=== PATIENT | female | born 1970 | race Caucasian/White ===

== ENCOUNTER 2019-10-24 13:18 | Inpatient (IN) | payer BC, OTHER ==
[~2019-10-24] VITALS: Ht 160 cm; Wt 71.7 kg
[2019-10-24] MEDS ORDERED: SODIUM CHLORIDE 0.9% 1,000 ML IV ONE (13:53)
[2019-10-24] MEDS ORDERED: ONDANSETRON HCL 4MG/2ML INJ IV STA ×4 (13:53→18:38)
[2019-10-24] MEDS ORDERED: FAMOTIDINE 20MG/2ML VIAL IV STA (13:53)
[2019-10-24] MEDS ORDERED: KETOROLAC 30MG/ML VIAL IV STA (14:15)
[2019-10-24 14:45] LABS: CHLORIDE 107 mEq/L (98-107)
[2019-10-24 14:46] LABS: PROTHROMBIN TIME 10.7 sec (9.6-11.0)
[2019-10-24 14:47] LABS: HEMATOCRIT. 38.3 % (36.0-48.0); HEMOGLOBIN. 12.5 g/dL (12.0-16.0); MEAN CORPUSCULAR HEMOGLOBIN 27.8 pg (28.0-32.0); MEAN CORPUSCULAR VOLUME 85.4 fL (81.0-99.0); MEAN PLATELET VOLUME 8.4 fl (7.4-10.4); PLATELET 442 x1000/uL (130-400); RED BLOOD CELL COUNT 4.49 mill/uL (4.2-5.4); RED CELL DISTRIBUTION WIDTH 14.7 % (11.6-14.6)
[2019-10-24 14:49] LABS: ETHANOL BLOOD < 10 mg/dL
[2019-10-24 14:56] LABS: HCG SCREEN NEGATIVE
[2019-10-24] MEDS ORDERED: LORAZEPAM 2MG/ML CPJ IV ONE (15:30)
[2019-10-24 15:41] LABS: CLARITY URINE CLOUDY (CLEAR); COLOR URINE YELLOW (YELLOW); KETONES URINE NEGATIVE (NEGATIVE); LEUKOCYTE ESTERASE URINE NEGATIVE (NEGATIVE); NITRITE URINE NEGATIVE (NEGATIVE); OCCULT BLOOD URINE NEGATIVE (NEGATIVE); PROTEIN URINE NEGATIVE (NEGATIVE); SPECIFIC GRAVITY URINE 1.017 (1.005-1.030); UROBILINOGEN URINE 0.2 E.U./dL (0.2-1.0)
[2019-10-24 15:49] LABS: PLATELET ESTIMATE NORMAL
[2019-10-24 15:54] LABS: *BARBITURATES SCREEN URINE NEGATIVE (NEGATIVE); *BENZODIAZEPINES SCREEN URINE NEGATIVE (NEGATIVE)
[2019-10-24 15:55] LABS: *AMPHETAMINES SCREEN URINE NEGATIVE (NEGATIVE); *COCAINE SCREEN URINE NEGATIVE (NEGATIVE); CANNABINOID URINE SCREEN NEGATIVE (NEGATIVE); METHADONE URINE SCREEN NEGATIVE (NEGATIVE); OPIATES URINE SCREEN NEGATIVE (NEGATIVE); PHENCYCLIDINE URINE SCREEN NEGATIVE (NEGATIVE)
[2019-10-24] MEDS ORDERED: MORPHINE SULFATE 4 MG/ML CPJ (NOT FOR IM USE) IV STA ×3 (15:59→18:38)
[2019-10-24] MEDS ORDERED: KCL 20MEQ/100ML PREMIX 100 ML IV ONE (16:30)
[2019-10-24] MEDS ORDERED: FENTANYL CITRATE/PF 50MCG/ML 2ML VIAL IV ONE ×2 (20:15→21:30)
[2019-10-24] MEDS: ONDANSETRON HCL 4MG/2ML INJ IV PRN (22:36)
[2019-10-25] MEDS: MORPHINE SULFATE 4 MG/ML CPJ (NOT FOR IM USE) IV PRN ×4 (00:30→17:49)
[2019-10-25] MEDS ORDERED: LEVOFLOXACIN 500MG PREMIX 100 ML IV SCH (01:00)
[2019-10-25] MEDS: ONDANSETRON HCL 4MG/2ML INJ IV PRN (04:31)
[2019-10-25] MEDS: DEXT 5%/0.45% NACL 1000ML 1,000 ML IV SCH ×2 (06:00→19:20)
[2019-10-25] MEDS ORDERED: SODIUM CHLORIDE 0.9% 1,000 ML IV SCH (06:00)
[2019-10-25 06:53] LABS: CHLORIDE 104 mEq/L (98-107)
[2019-10-25 07:00] LABS: LDL CHOLESTEROL 156 mg/dL (5-100)
[2019-10-25 07:01] LABS: HDL CHOLESTEROL 60 mg/dL (40-59)
[2019-10-25 08:00] VITALS: BP 134/72
[2019-10-25 09:39] VITALS: BP 136/84
[2019-10-25 10:56] LABS: HEMATOCRIT. 42.1 % (36.0-48.0); HEMOGLOBIN. 14.1 g/dL (12.0-16.0); MEAN CORPUSCULAR HEMOGLOBIN 28.6 pg (28.0-32.0); MEAN CORPUSCULAR VOLUME 85.4 fL (81.0-99.0); MEAN PLATELET VOLUME 8.8 fl (7.4-10.4); PLATELET 386 x1000/uL (130-400); RED BLOOD CELL COUNT 4.93 mill/uL (4.2-5.4); RED CELL DISTRIBUTION WIDTH 14.6 % (11.6-14.6)
[2019-10-25] MEDS: METRONIDAZOLE 500 MG PREMIX 100 ML IV SCH ×2 (11:46→21:51)
[2019-10-25 12:00] VITALS: BP 137/95
[2019-10-25] MEDS: METOPROLOL TARTRATE 25MG TABLET PO SCH ×2 (13:17→17:49)
[2019-10-25 14:30] VITALS: BP 136/84
[2019-10-25 15:26] LABS: PLATELET ESTIMATE NORMAL
[2019-10-25 16:00] VITALS: BP 129/90
[2019-10-25 20:00] VITALS: BP 118/81
[2019-10-25] MEDS: ATORVASTATIN CALCIUM 40MG TABLET PO SCH (21:51)
[2019-10-26] VITALS: BP 120/80
[2019-10-26] MEDS: ZOLPIDEM TARTRATE 5MG TABLET PO PRN (00:15)
[2019-10-26] MEDS ORDERED: LEVOFLOXACIN 500MG PREMIX 100 ML IV SCH (01:00)
[2019-10-26] MEDS: DEXT 5%/0.45% NACL 1000ML 1,000 ML IV SCH ×4 (01:40→22:06)
[2019-10-26 04:00] VITALS: BP 128/85
[2019-10-26] MEDS: METRONIDAZOLE 500 MG PREMIX 100 ML IV SCH ×2 (04:07→12:10)
[2019-10-26 07:58] LABS: MEAN CORPUSCULAR HEMOGLOBIN 27.6 pg (28.0-32.0); MEAN CORPUSCULAR VOLUME 85.1 fL (81.0-99.0); MEAN PLATELET VOLUME 8.7 fl (7.4-10.4); PLATELET 317 x1000/uL (130-400); RED BLOOD CELL COUNT 4.69 mill/uL (4.2-5.4); RED CELL DISTRIBUTION WIDTH 14.8 % (11.6-14.6)
[2019-10-26] MEDS: MORPHINE SULFATE 4 MG/ML CPJ (NOT FOR IM USE) IV PRN ×3 (07:59→18:33)
[2019-10-26 08:00] VITALS: BP 123/86
[2019-10-26 08:04] LABS: CHLORIDE 105 mEq/L (98-107)
[2019-10-26 08:18] LABS: AMYLASE 925 IU/L (25-115)
[2019-10-26] MEDS: FAMOTIDINE 20MG/2ML VIAL IV SCH (08:59)
[2019-10-26] MEDS: METOPROLOL TARTRATE 25MG TABLET PO SCH ×2 (09:01→17:54)
[2019-10-26 12:00] VITALS: BP 128/80
[2019-10-26 12:57] LABS: PLATELET ESTIMATE NORMAL
[2019-10-26] MEDS: PIPERACILLIN/TAZOBACTAM 3.375 G in DEXT 5% WATER 100 ML IV SCH ×2 (15:21→22:06)
[2019-10-26 16:00] VITALS: BP 146/96
[2019-10-26 20:00] VITALS: BP 121/83
[2019-10-26] MEDS: ATORVASTATIN CALCIUM 40MG TABLET PO SCH (22:06)
[2019-10-26] MEDS: ACETAMINOPHEN 325MG TABLET PO PRN (23:40)
[2019-10-27] VITALS: BP 144/87
[2019-10-27] MEDS: MORPHINE SULFATE 4 MG/ML CPJ (NOT FOR IM USE) IV PRN ×5 (00:46→21:50)
[2019-10-27] MEDS: PIPERACILLIN/TAZOBACTAM 3.375 G in DEXT 5% WATER 100 ML IV SCH ×4 (02:57→20:36)
[2019-10-27 04:00] VITALS: BP 120/82
[2019-10-27] MEDS: DEXT 5%/0.45% NACL 1000ML 1,000 ML IV SCH ×3 (04:38→16:30)
[2019-10-27 07:29] LABS: CHLORIDE 104 mEq/L (98-107)
[2019-10-27 07:32] LABS: HEMATOCRIT. 32.9 % (36.0-48.0); HEMOGLOBIN. 10.9 g/dL (12.0-16.0); MEAN CORPUSCULAR HEMOGLOBIN 28.2 pg (28.0-32.0); MEAN CORPUSCULAR VOLUME 84.9 fL (81.0-99.0); MEAN PLATELET VOLUME 8.6 fl (7.4-10.4); PLATELET 248 x1000/uL (130-400); RED BLOOD CELL COUNT 3.87 mill/uL (4.2-5.4)
[2019-10-27 07:42] LABS: AMYLASE 723 IU/L (25-115)
[2019-10-27 07:57] VITALS: BP 133/77
[2019-10-27] MEDS: METOPROLOL TARTRATE 25MG TABLET PO SCH ×2 (08:36→16:33)
[2019-10-27] MEDS: FAMOTIDINE 20MG/2ML VIAL IV SCH (08:36)
[2019-10-27] MEDS: DOCUSATE SODIUM 250MG CAPSULE PO SCH ×2 (08:37→16:28)
[2019-10-27 11:51] VITALS: BP 130/69
[2019-10-27 15:31] VITALS: BP 122/68
[2019-10-27 16:49] LABS: PLATELET ESTIMATE NORMAL
[2019-10-27 20:00] VITALS: BP 132/83
[2019-10-27] MEDS: ATORVASTATIN CALCIUM 40MG TABLET PO SCH (20:36)
[2019-10-28] VITALS: BP 125/81
[2019-10-28] MEDS: ONDANSETRON HCL 4MG/2ML INJ IV PRN (00:04)
[2019-10-28] MEDS: DEXT 5%/0.45% NACL 1000ML 1,000 ML IV SCH ×4 (00:04→21:27)
[2019-10-28] MEDS: PIPERACILLIN/TAZOBACTAM 3.375 G in DEXT 5% WATER 100 ML IV SCH ×4 (02:08→21:21)
[2019-10-28] MEDS: MORPHINE SULFATE 4 MG/ML CPJ (NOT FOR IM USE) IV PRN ×5 (02:09→21:23)
[2019-10-28 04:00] VITALS: BP 129/76
[2019-10-28] MEDS: ZOLPIDEM TARTRATE 5MG TABLET PO PRN ×2 (04:10→21:31)
[2019-10-28 06:47] LABS: HEMOGLOBIN. 9.2 g/dL (12.0-16.0); MEAN CORPUSCULAR HEMOGLOBIN 28.3 pg (28.0-32.0); MEAN CORPUSCULAR VOLUME 86.5 fL (81.0-99.0); MEAN PLATELET VOLUME 8.5 fl (7.4-10.4); PLATELET 256 x1000/uL (130-400); RED BLOOD CELL COUNT 3.24 mill/uL (4.2-5.4); RED CELL DISTRIBUTION WIDTH 15.2 % (11.6-14.6)
[2019-10-28 07:21] LABS: CHLORIDE 104 mEq/L (98-107)
[2019-10-28 07:41] VITALS: BP 128/80
[2019-10-28] MEDS: FAMOTIDINE 20MG/2ML VIAL IV SCH (08:27)
[2019-10-28] MEDS: DOCUSATE SODIUM 250MG CAPSULE PO SCH ×2 (08:28→16:40)
[2019-10-28] MEDS: METOPROLOL TARTRATE 25MG TABLET PO SCH ×2 (08:28→17:04)
[2019-10-28 11:37] VITALS: BP 126/80
[2019-10-28] MEDS ORDERED: DEXTROSE 50% WATER 50ML SYRINGE IV PRN (12:15)
[2019-10-28] MEDS: BLOOD SUGAR DIAGNOSTIC STRIP TEST SCH ×3 (13:10→21:28)
[2019-10-28] MEDS: INSULIN LISPRO 100 UNITS/ML SUBCUT SCH ×3 (13:14→21:31)
[2019-10-28 16:00] VITALS: BP 148/84
[2019-10-28 17:32] LABS: PLATELET ESTIMATE NORMAL
[2019-10-28] MEDS: ACETAMINOPHEN 325MG TABLET PO PRN (19:37)
[2019-10-28] MEDS: ATORVASTATIN CALCIUM 40MG TABLET PO SCH (19:37)
[2019-10-28 20:00] VITALS: BP 133/82
[2019-10-29] VITALS: BP 126/74
[2019-10-29] MEDS: MORPHINE SULFATE 4 MG/ML CPJ (NOT FOR IM USE) IV PRN ×3 (00:59→09:14)
[2019-10-29] MEDS: PIPERACILLIN/TAZOBACTAM 3.375 G in DEXT 5% WATER 100 ML IV SCH ×2 (03:11→09:15)
[2019-10-29] MEDS: DEXT 5%/0.45% NACL 1000ML 1,000 ML IV SCH ×4 (03:12→23:20)
[2019-10-29 04:00] VITALS: BP 140/78
[2019-10-29] MEDS: BLOOD SUGAR DIAGNOSTIC STRIP TEST SCH ×4 (06:16→21:22)
[2019-10-29 07:30] LABS: HEMATOCRIT. 27.3 % (36.0-48.0); HEMOGLOBIN. 9.1 g/dL (12.0-16.0); MEAN CORPUSCULAR HEMOGLOBIN 28.3 pg (28.0-32.0); MEAN CORPUSCULAR VOLUME 84.6 fL (81.0-99.0); MEAN PLATELET VOLUME 8.4 fl (7.4-10.4); PLATELET 266 x1000/uL (130-400); RED BLOOD CELL COUNT 3.23 mill/uL (4.2-5.4); RED CELL DISTRIBUTION WIDTH 15.1 % (11.6-14.6)
[2019-10-29 08:00] VITALS: BP 129/75
[2019-10-29 08:53] LABS: CHLORIDE 101 mEq/L (98-107)
[2019-10-29] MEDS: METOPROLOL TARTRATE 25MG TABLET PO SCH ×2 (09:14→18:14)
[2019-10-29] MEDS: DOCUSATE SODIUM 250MG CAPSULE PO SCH ×2 (09:14→18:14)
[2019-10-29] MEDS: FAMOTIDINE 20MG/2ML VIAL IV SCH (09:14)
[2019-10-29] MEDS: INSULIN LISPRO 100 UNITS/ML SUBCUT SCH ×4 (09:17→21:29)
[2019-10-29] MEDS: ACETAMINOPHEN 325MG TABLET PO PRN ×2 (11:34→21:28)
[2019-10-29 12:00] VITALS: BP 111/72
[2019-10-29] MEDS ORDERED: POTASSIUM CHLORIDE 20MEQ TABLET SR PO NR (12:15)
[2019-10-29] MEDS: HYDROCODONE/ACETAMINOPHEN 5/325MG TABLET PO PRN ×3 (13:00→22:22)
[2019-10-29 14:16] LABS: PLATELET ESTIMATE NORMAL
[2019-10-29 16:00] VITALS: BP 121/75
[2019-10-29 20:00] VITALS: BP 119/74
[2019-10-29] MEDS: ATORVASTATIN CALCIUM 40MG TABLET PO SCH (21:28)
[2019-10-29] MEDS: ZOLPIDEM TARTRATE 5MG TABLET PO PRN (23:57)
[2019-10-30] VITALS: BP 105/62
[2019-10-30 04:00] VITALS: BP 125/69
[2019-10-30] MEDS: DEXT 5%/0.45% NACL 1000ML 1,000 ML IV SCH ×3 (05:26→20:52)
[2019-10-30] MEDS: HYDROCODONE/ACETAMINOPHEN 5/325MG TABLET PO PRN ×3 (06:56→10:53)
[2019-10-30 08:26] VITALS: BP_SYST 110; BP_SYST 113; BP_DIAS 68; BP_DIAS 70
[2019-10-30] MEDS: DOCUSATE SODIUM 250MG CAPSULE PO SCH ×2 (08:29→18:36)
[2019-10-30] MEDS: METOPROLOL TARTRATE 25MG TABLET PO SCH ×3 (08:30→18:36)
[2019-10-30] MEDS: BLOOD SUGAR DIAGNOSTIC STRIP TEST SCH ×4 (08:31→20:52)
[2019-10-30] MEDS: INSULIN LISPRO 100 UNITS/ML SUBCUT SCH ×4 (08:31→20:52)
[2019-10-30] MEDS: FAMOTIDINE 20MG/2ML VIAL IV SCH (08:34)
[2019-10-30 08:45] LABS: MEAN CORPUSCULAR HEMOGLOBIN 28.2 pg (28.0-32.0); MEAN CORPUSCULAR VOLUME 84.3 fL (81.0-99.0); PLATELET 340 x1000/uL (130-400); RED CELL DISTRIBUTION WIDTH 15.2 % (11.6-14.6)
[2019-10-30 09:09] LABS: CHLORIDE 103 mEq/L (98-107)
[2019-10-30] MEDS ORDERED: MORPHINE SULFATE 2 MG/ML CPJ (NOT FOR IM USE) IV PRN (11:15)
[2019-10-30 12:00] VITALS: BP 113/72
[2019-10-30] MEDS ORDERED: POTASSIUM CHLORIDE 20MEQ TABLET SR PO SCH (14:00)
[2019-10-30 16:00] VITALS: BP 119/74
[2019-10-30 20:00] VITALS: BP 115/74
[2019-10-30] MEDS: HYDROCODONE/ACETAMINOPHEN 10/325MG TABLET PO PRN (20:04)
[2019-10-30] MEDS: ATORVASTATIN CALCIUM 40MG TABLET PO SCH (20:52)
[2019-10-31] VITALS (7 sets, daily range): BP systolic 100–126; BP diastolic 61–71
[2019-10-31] MEDS: HYDROCODONE/ACETAMINOPHEN 10/325MG TABLET PO PRN (00:14)
[2019-10-31] MEDS: DEXT 5%/0.45% NACL 1000ML 1,000 ML IV SCH ×4 (02:00→22:08)
[2019-10-31 06:55] LABS: HEMATOCRIT 25.3 % (36.0-48.0); HEMOGLOBIN 8.6 g/dL (12.0-16.0); MEAN CORPUSCULAR HEMOGLOBIN 28.7 pg (28.0-32.0); MEAN CORPUSCULAR VOLUME 84.4 fL (81.0-99.0); PLATELET 342 x1000/uL (130-400); RED CELL DISTRIBUTION WIDTH 15.1 % (11.6-14.6)
[2019-10-31 07:24] LABS: CHLORIDE 104 mEq/L (98-107)
[2019-10-31 07:36] LABS: AMYLASE 65 IU/L (25-115)
[2019-10-31] MEDS: BLOOD SUGAR DIAGNOSTIC STRIP TEST SCH ×4 (07:41→21:00)
[2019-10-31] MEDS: METOPROLOL TARTRATE 25MG TABLET PO SCH ×2 (08:47→16:27)
[2019-10-31] MEDS: FAMOTIDINE 20MG/2ML VIAL IV SCH (08:59)
[2019-10-31] MEDS: DOCUSATE SODIUM 250MG CAPSULE PO SCH ×2 (08:59→16:17)
[2019-10-31] MEDS: INSULIN LISPRO 100 UNITS/ML SUBCUT SCH ×4 (09:00→21:57)
[2019-10-31] MEDS: ACETAMINOPHEN 325MG TABLET PO PRN ×2 (11:14→22:07)
[2019-10-31] MEDS ORDERED: POTASSIUM CHLORIDE 20MEQ TABLET SR PO NR (11:45)
[2019-10-31] MEDS ORDERED: PIPERACILLIN/TAZOBACTAM 3.375 G in DEXT 5% WATER 100 ML IV SCH (18:00)
[2019-10-31] MEDS: ATORVASTATIN CALCIUM 40MG TABLET PO SCH (21:58)
[2019-10-31] MEDS ORDERED: MEROPENEM 1,000 MG in SODIUM CHLORIDE 0.9% 100 ML IV SCH (23:30)
[2019-11-01] VITALS (11 sets, daily range): BP systolic 109–128; BP diastolic 57–84
[2019-11-01] MEDS: MEROPENEM 1,000 MG in SODIUM CHLORIDE 0.9% 100 ML IV SCH ×3 (01:34→17:15)
[2019-11-01] MEDS: DEXT 5%/0.45% NACL 1000ML 1,000 ML IV SCH ×3 (04:40→17:26)
[2019-11-01 07:51] LABS: HEMATOCRIT 25.8 % (36.0-48.0); HEMOGLOBIN 8.5 g/dL (12.0-16.0); MEAN CORPUSCULAR HEMOGLOBIN 28.1 pg (28.0-32.0); MEAN CORPUSCULAR VOLUME 85.1 fL (81.0-99.0); PLATELET 474 x1000/uL (130-400); RED BLOOD CELL COUNT 3.03 mill/uL (4.2-5.4); RED CELL DISTRIBUTION WIDTH 15.2 % (11.6-14.6)
[2019-11-01] MEDS: BLOOD SUGAR DIAGNOSTIC STRIP TEST SCH ×4 (07:52→21:03)
[2019-11-01 08:00] LABS: CHLORIDE 102 mEq/L (98-107)
[2019-11-01 08:04] LABS: AMYLASE 52 IU/L (25-115)
[2019-11-01] MEDS: DOCUSATE SODIUM 250MG CAPSULE PO SCH ×2 (09:00→17:00)
[2019-11-01] MEDS: HYDROCODONE/ACETAMINOPHEN 10/325MG TABLET PO PRN (10:09)
[2019-11-01] MEDS: FAMOTIDINE 20MG/2ML VIAL IV SCH (10:09)
[2019-11-01] MEDS: METOPROLOL TARTRATE 50MG TABLET PO SCH ×2 (10:10→21:02)
[2019-11-01] MEDS: METOPROLOL TARTRATE 25MG TABLET PO SCH ×2 (10:11→17:15)
[2019-11-01] MEDS: INSULIN LISPRO 100 UNITS/ML SUBCUT SCH ×4 (10:12→21:03)
[2019-11-01] MEDS ORDERED: DIATR MEGLU/DIATRIZOATE SOLN 30ML PO SCH (12:00)
[2019-11-01] MEDS: ACETAMINOPHEN 325MG TABLET PO PRN (15:58)
[2019-11-01] MEDS: ATORVASTATIN CALCIUM 40MG TABLET PO SCH (21:02)
[2019-11-02] VITALS (13 sets, daily range): BP systolic 85–124; BP diastolic 30–69
[2019-11-02] MEDS: DEXT 5%/0.45% NACL 1000ML 1,000 ML IV SCH ×4 (01:38→20:16)
[2019-11-02] MEDS: MEROPENEM 1,000 MG in SODIUM CHLORIDE 0.9% 100 ML IV SCH ×3 (01:38→17:38)
[2019-11-02] MEDS: ACETAMINOPHEN 325MG TABLET PO PRN ×2 (03:00→12:42)
[2019-11-02 06:29] LABS: HEMATOCRIT. 24.4 % (36.0-48.0); MEAN CORPUSCULAR HEMOGLOBIN 27.8 pg (28.0-32.0); MEAN CORPUSCULAR VOLUME 84.2 fL (81.0-99.0); MEAN PLATELET VOLUME 7.7 fl (7.4-10.4); PLATELET 485 x1000/uL (130-400); RED CELL DISTRIBUTION WIDTH 15.2 % (11.6-14.6)
[2019-11-02 06:42] LABS: CHLORIDE 104 mEq/L (98-107)
[2019-11-02 06:52] LABS: AMYLASE 46 IU/L (25-115)
[2019-11-02] MEDS ORDERED: POTASSIUM CHLORIDE INJ 40 MEQ in DEXT 5% WATER 250 ML IV ONE ×2 (07:15→12:00)
[2019-11-02] MEDS: BLOOD SUGAR DIAGNOSTIC STRIP TEST SCH ×4 (07:58→20:17)
[2019-11-02] MEDS: FAMOTIDINE 20MG/2ML VIAL IV SCH (08:22)
[2019-11-02] MEDS: INSULIN LISPRO 100 UNITS/ML SUBCUT SCH ×4 (08:23→20:17)
[2019-11-02] MEDS: DOCUSATE SODIUM 250MG CAPSULE PO SCH ×2 (08:23→17:00)
[2019-11-02] MEDS: METOPROLOL TARTRATE 50MG TABLET PO SCH ×2 (08:24→20:17)
[2019-11-02 12:30] LABS: HEMATOCRIT. 27.3 % (36.0-48.0); HEMOGLOBIN. 9.1 g/dL (12.0-16.0); MEAN CORPUSCULAR VOLUME 84.2 fL (81.0-99.0); PLATELET 587 x1000/uL (130-400); RED BLOOD CELL COUNT 3.24 mill/uL (4.2-5.4); RED CELL DISTRIBUTION WIDTH 15.1 % (11.6-14.6)
[2019-11-02 14:20] LABS: PLATELET ESTIMATE SLIGHTLY INCREASED
[2019-11-02 15:01] LABS: BG BASE EXCESS -3.6 mmol/L (-2.0-2.0); BG CARBOXYHEMOGLOBIN 0.3 % (0.5-1.5); BG DEOXYHEMOGLOBIN 2.6 % (0.0-5.0); BG FRACTION INSPIRED OXYGEN 28; BG HCO3 ACT 17.5 mmol/L (22.0-26.0); BG METHEMOGLOBIN 0.3 % (0.0-1.5); BG OXYGEN SATURATION 97.4 % (92.0-98.5); BG OXYHEMOGLOBIN 96.8 % (94.0-97.0); BG PCO2 19.9 mmHg (35.0-45.0); BG PH 7.561 (7.350-7.450); BG PO2 99.6 mmHg (75.0-100.0); BG SAMPLE SITE RIGHT RADIAL; BG TOTAL HEMOGLOBIN 8.7 g/dL (12.0-18.0); BG VENT MODE NASAL CANNULA
[2019-11-02] MEDS ORDERED: MORPHINE SULFATE 2 MG/ML CPJ (NOT FOR IM USE) IV PRN (15:15)
[2019-11-02 17:36] LABS: PLATELET ESTIMATE INCREASED
[2019-11-02] MEDS: ATORVASTATIN CALCIUM 40MG TABLET PO SCH (20:16)
[2019-11-02] MEDS ORDERED: ZOLPIDEM TARTRATE 5MG TABLET PO PRN (22:45)
[2019-11-02] MEDS: HYDROCODONE/ACETAMINOPHEN 10/325MG TABLET PO PRN (22:58)
[2019-11-03] VITALS (11 sets, daily range): BP systolic 99–118; BP diastolic 51–77
[2019-11-03] MEDS: MEROPENEM 1,000 MG in SODIUM CHLORIDE 0.9% 100 ML IV SCH ×3 (01:20→17:38)
[2019-11-03] MEDS: DEXT 5%/0.45% NACL 1000ML 1,000 ML IV SCH ×2 (01:21→08:43)
[2019-11-03] MEDS: BLOOD SUGAR DIAGNOSTIC STRIP TEST SCH ×3 (07:30→17:34)
[2019-11-03 07:32] LABS: CHLORIDE 104 mEq/L (98-107)
[2019-11-03 07:43] LABS: AMYLASE 45 IU/L (25-115)
[2019-11-03] MEDS: ACETAMINOPHEN 325MG TABLET PO PRN ×2 (08:42→16:32)
[2019-11-03] MEDS: INSULIN LISPRO 100 UNITS/ML SUBCUT SCH ×3 (08:43→17:39)
[2019-11-03] MEDS: METOPROLOL TARTRATE 50MG TABLET PO SCH (08:44)
[2019-11-03] MEDS: DOCUSATE SODIUM 250MG CAPSULE PO SCH ×3 (08:44→17:00)
[2019-11-03] MEDS ORDERED: PANTOPRAZOLE SODIUM 40 MG/VIAL IV SCH (09:00)
[2019-11-03] MEDS ORDERED: KCL 20MEQ/100ML PREMIX 100 ML IV SCH (11:00)
== END 2019-11-03 20:47 | disposition short-term general hospital (02) | DRG 871 ==
LOC: ER 13:18 → 6EST 20:57 → ENRESERV 10-25 07:51 → 7WST 10-25 15:39 → 5EST 10-31 21:10
PROVIDERS: ADMIT Internal Medicine; ATTEND Internal Medicine
DX: A41.9 Sepsis, unspecified organism (principal); K85.90 Acute pancreatitis without necrosis or infection, unspecified; K56.7 Ileus, unspecified; E46 Unspecified protein-calorie malnutrition; J98.11 Atelectasis; R18.8 Other ascites; J90 Pleural effusion, not elsewhere classified; E87.6 Hypokalemia; E78.5 Hyperlipidemia, unspecified; D64.9 Anemia, unspecified; E87.5 Hyperkalemia; K86.89 Other specified diseases of pancreas; Z79.899 Other long term (current) drug therapy; Z68.28 Body mass index [BMI] 28.0-28.9, adult
CPT/HCPCS: 36415; 36600; 71045; 74018; 74176; 74177; 74181; 76700; 80048; 80053; 80061; 80076; 80305; 80320; 81003; 82140; 82150; 82375; 82805; 82962; 83036; 83605; 84132; 84145; 84703; 85025; 85027; 93306; 93970; 99285; C9113; J1815; J1885; J1956; J2060; J2185; J2270; J2405; J2543; J3010; J3480; J3490; J7030; J7050; J7060; Q9963; G0480